=== PATIENT | female | born 1995 | race Caucasian/White ===

== ENCOUNTER 2016-11-24 21:31 | Inpatient (IN) | payer OTHER ==
[~2016-11-24] VITALS: Ht 152.4 cm; Wt 57.2 kg
[~2016-11-24 21:31] MED LIST: FERR27TA PO; NO MEDS; PREN1TAB49 PO
[2016-11-24 22:06] VITALS: Ht 152.4 cm; Wt 57.2 kg
[2016-11-24 22:07] VITALS: BP 108/56; PULSE 74; RESP 18
[2016-11-24 22:08] VITALS: BP 108/56
[2016-11-24] MEDS ORDERED: LACTATED RINGER'S 1,000 ML IV SCH (22:47)
[2016-11-24] MEDS ORDERED: METHYLERGONOVINE 0.2 MG INJ IM PRN (23:00)
[2016-11-24] MEDS ORDERED: OXYTOCIN 30 UNITS/LR 500 ML IV SCH ×2 (23:00)
[2016-11-24] MEDS ORDERED: LACTATED RINGER'S 1,000 ML IV PRN (23:00)
[2016-11-24] MEDS ORDERED: LIDOCAINE 1% (MPF) 30 ML INJ INJ PRN (23:00)
[2016-11-24] MEDS ORDERED: MISOPROSTOL 200 MCG TAB PR PRN (23:00)
[2016-11-24] MEDS ORDERED: BUTORPHANOL 2 MG INJ IV PRN (23:00)
[2016-11-24] MEDS ORDERED: AMPICILLIN 2 GM/NS (PMX) 100 ML IV ONE (23:00)
[2016-11-24] MEDS ORDERED: OXYTOCIN 30 UNITS/LR 500 ML IV PRN (23:00)
[2016-11-24] MEDS ORDERED: CARBOPROST 250 MCG INJ IM PRN (23:00)
--- NOTE | 2016-11-24 23:11 | HP ---
Date/Time of Note Date/Time of Note DATE: 11/24/16 TIME: 23:07 OB - History Hx of Present Free Text/Dictation 21-year-old with IUP at 38 weeks and 1 day with care at [facility] was sent from the clinic due to concern for possible cholestasis of . Patient reports itching of the pounds and soles for the last 1 and half weeks. Past OB history significant for history of cholecysto prior . She denies any leaking of fluid vaginal bleeding or contractions or decreased movement. Past medical history also significant for history of severe anemia. Hemoglobin was 8.3. She also had a history of chronic UTI currently on medication. Exam shows favorable cervix. NST category 1 Estimated Due Date: Dec 05, 2016 : 3 Para: 1 Therapeutic : 1 Care: Good Care Obstetrical Complications: Other (Severe anemia) Medical Complications: None Other Concerns: itching of the palms and soles History of cholestasis of at prior Past Family/Social History * Past Medical, Surgical, Family and Obstetric Histories reviewed from chart. Blood Type: B+ Rubella: immune RPR/VDRL: Negative GBS Status: Unknown HBsAG: Negative OB Admission Exam Vital Signs Vital Signs Vital Signs Date Time Temp Pulse Resp B/P Pulse Ox O2 Delivery O2 Flow Rate FiO2 11/24/16 22:08 98.0 74 18 108/56 100 Room Air Physical Exam HEENT: WNL Heart: Rhythm Normal Lungs: Clear Abdomen: WNL Extremities: Normal Reflexes: Normal Cervical Dilatation: 1cm Effacement: 75% Station: -2 Membranes: Intact Heart Rate: 130's Accelerations: Accelerations Present Decelerations: No Decelerations Varibility: Moderate Contractions on Admission: None Intensity: Mild OB Assessment/Plan Other Assessment: IUP at 38 weeks and 1 days Favorable cervix History of cholestasis and prior Itching of soles and palms, cannot rule out cholecystitis and current as well History of severe anemia. Asymptomatic and hemodynamically stable likely iron deficiency anemia. Other plan: Admit to labor and delivery Induction discussed with the patient and due to concern for possibility of cholestasis and term . Risk and benefits discussed. Consider starting induction with Cytotec GBS prophylaxis. GBS culture was done no results available. Anticipate ALMA GOMEZ MD Nov 24, 2016 23:11
--- NOTE | 2016-11-24 23:46 | TRIAGE ---
OB Triage Datetime Report Generated by CPN: 11/24/2016 23:45 Datetime: 11/24/2016 23:17 Assessment Type: Admission Assessment Maternal Assessment Level of Consciousness: Fully Conscious DTR's/Clonus: DTRs 2+; No Clonus Headache: Denies Blurred Vision: No Respiratory Effort: Unlabored Breath Sounds, Right: Clear and Equal Nausea/Vomiting: Denies RUQ Epigastric Pain: Denies Lower Extremities Edema: None Degree: None Upper Extremities Edema: None Degree: None Facial Edema: None Fall Risk Assessment History of Falling: (0) No Secondary Diagnosis: (0) No Ambulatory Aid: (0) Bedrest/Nurse Assist IV Therapy: (0) No Gait: (0) Normal/Bedrest/Immobile Mental Status: (0) Oriented to Own Ability Fall Score: 0 Fall Risk Score Definition: No Risk: No action required Pain Assessment Pain Scale: 0 Pain Presence: None/Denies Pain Type: N/A Pain Goal: 0 Membrane Status: Intact Datetime: 11/24/2016 22:27 Vaginal Exam Dilatation (cms): 1.0 Effacement (%): 70 Station: -2 Exam By: DR GOMEZ Vaginal Bleeding: None Cervix, Consistency: Moderate Cervix, Position: Anterior Presentation 'A': Cephalic Datetime: 11/24/2016 22:24 Maternal Assessment Level of Consciousness: Fully Conscious DTR's/Clonus: DTRs 2+; No Clonus Headache: Denies Blurred Vision: No Breath Sounds, Left: Clear and Equal Breath Sounds, Right: Clear and Equal Nausea/Vomiting: Denies RUQ Epigastric Pain: Denies Facial Edema: None Labor Evaluation Frequency: 0 Monitor Mode: External Duration (sec)2399: 0 Resting Tone [place]: Relaxed Pain Assessment Pain Scale: 0 Pain Presence: None/Denies Pain Type: N/A Pain Goal: 0 Membrane Status: Intact Datetime: 11/24/2016 22:04 Time of Arrival: 11/24/2016 21:28 EGA: 38.1 Arrived By: Ambulatory Arrived From: Office Chief Complaint: r/o cholestatis Movement: Present Contractions: Denies/Absent Rupture of Membranes: Denies Vaginal Bleeding: None Vaginal Discharge: Denies Recent Sexual Intercouse: Denies Abdominal Trauma: Not Applicable Patient Complaints: None Time Provider Notified: 11/24/2016 21:45 Provider Notified: JASON
[2016-11-25] MEDS: MISOPROSTOL 25 MCG CAPSULE PO SCH ×6 (00:17→21:00)
[2016-11-25 00:20] LABS: BASOPHILS % 0.5 % (0.0-2.0); EOSINOPHILS % 0.2 % (0.0-7.0); HEMATOCRIT 26.9 % (37.0-47.0); HEMOGLOBIN 8.6 g/dl (12.0-16.0); LYMPHOCYTES # 1.7 10^3/ul (0.8-2.9); LYMPHOCYTES % 27.9 % (15.0-51.0); MEAN CORPUSCULAR HEMOGLOBIN 25.2 pg (29.0-33.0); MEAN CORPUSCULAR HGB CONC 32.1 g/dl (32.0-37.0); MEAN CORPUSCULAR VOLUME 78.7 fl (82.0-101.0); MEAN PLATELET VOLUME 8.3 fl (7.4-10.4); MONOCYTE # 0.2 10^3/ul (0.3-0.9); MONOCYTES % 3.3 % (0.0-11.0); NEUTROPHIL # 4.1 10^3/ul (1.6-7.5); NEUTROPHILS % 68.1 % (39.0-77.0); PLATELET COUNT 277 10^3/UL (140-440); RED BLOOD COUNT 3.42 10^6/ul (4.20-5.40); RED CELL DISTRIBUTION WIDTH 15.4 % (11.5-14.5)
[2016-11-25 00:24] LABS: CONDITION 1; LH ANALYZER COMMENTS 1
[2016-11-25 00:52] LABS: INR 0.85; PARTIAL THROMBOPLASTIN TIME 26.7 Sec (25.0-35.0); PROTIME 11.6 Sec (12.2-14.2); PT RATIO 0.9
[2016-11-25] MEDS ORDERED: DIPHENHYDRAMINE 50 MG INJ IM ONE (02:00)
[2016-11-25] MEDS ORDERED: AMPICILLIN 1 GM/NS (PMX) 50 ML IV SCH (03:00)
[2016-11-25] MEDS ORDERED: FENTAnyl 2MCG/ML-ROPIV 0.2% 100 ML ONE (07:45)
--- NOTE | 2016-11-25 09:27 | LDN ---
Date/Time of Note Date/Time of Note DATE: 11/25/16 TIME: 09:21 Delivery Summary Normal spontaneous vaginal delivery of a baby boy from HERBERT position shoulders delivered with no difficulty followed with the delivery of the rest of the baby, s body cord clamp after stopped pulsation cord blood obtained placenta spontaneous expulsion inspected complete no perineal laceration estimated blood loss 200 cc. Placenta Delivered: Spontaneously Meconium: none Perineum intact?: Yes Anesthesia type: Epidural Sponge & Needle done & correct: Yes All needle counts correct: Yes Any foreign bodies felt in the: No Problems: Infant Delivery Information Sex Sex: male Apgars 1 Minute: 9 5 Minute: 9 Suctioning Nose & mouth suctioned at edward: Yes Delee suction performed: No Umbilical Cord Umbilical cord with: 3 Vessels Cord presentations: no nuchal cord Cord Blood was obtained: Yes RACHEL ALCAZAR MD Nov 25, 2016 09:27
[2016-11-25 11:26] VITALS: BP 122/73; PULSE 78; RESP 20
[2016-11-25] MEDS ORDERED: ACETAMINOPHEN 325 MG TAB PO PRN (11:30)
[2016-11-25] MEDS ORDERED: DIBUCAINE 1% 30 GM OINT PR PRN (11:30)
[2016-11-25] MEDS ORDERED: WITCH HAZEL/GLYCERIN PAD PR PRN (11:30)
[2016-11-25] MEDS ORDERED: OXYCODONE/ASPIRIN (4.88/325) TAB PO PRN ×2 (11:30)
[2016-11-25] MEDS ORDERED: ACETAMINOPHEN/CODEINE #3 TAB PO PRN (11:30)
[2016-11-25] MEDS ORDERED: LANOLIN 7 GM TUBE TOP PRN (11:30)
[2016-11-25] MEDS ORDERED: ONDANSETRON 4 MG INJ IV PRN (11:30)
[2016-11-25] MEDS ORDERED: BENZOCAINE 20% 56 ML SPRAY TOP PRN (11:30)
[2016-11-25] MEDS: IBUPROFEN 600 MG TAB PO SCH ×3 (11:50→23:39)
[2016-11-25] MEDS: OXYTOCIN 30 UNITS/LR 500 ML IV SCH ×2 (11:52→15:13)
[2016-11-25 15:35] VITALS: BP 106/66; PULSE 80; RESP 19
[2016-11-25 19:45] VITALS: BP 102/63; PULSE 66; RESP 18
[2016-11-25] MEDS: ACETAMINOPHEN/CODEINE #3 TAB PO PRN (20:02)
[2016-11-25] MEDS: SENNA/DOCUSATE NA (8.6MG/50MG) TAB PO SCH (21:24)
[2016-11-25 23:53] VITALS: BP 104/55; PULSE 69; RESP 18
[2016-11-26] MEDS ORDERED: LACTATED RINGER'S 1,000 ML IV ONE (02:00)
[2016-11-26 03:41] VITALS: BP 99/49; PULSE 63; RESP 18
[2016-11-26] MEDS: ACETAMINOPHEN/CODEINE #3 TAB PO PRN ×3 (04:52→21:07)
[2016-11-26] MEDS: IBUPROFEN 600 MG TAB PO SCH ×4 (05:39→23:35)
[2016-11-26 07:53] LABS: BASOPHILS % 0.5 % (0.0-2.0); EOSINOPHILS % 0.3 % (0.0-7.0); HEMATOCRIT 24.1 % (37.0-47.0); HEMOGLOBIN 7.9 g/dl (12.0-16.0); LYMPHOCYTES # 1.6 10^3/ul (0.8-2.9); LYMPHOCYTES % 18.5 % (15.0-51.0); MEAN CORPUSCULAR HEMOGLOBIN 25.7 pg (29.0-33.0); MEAN CORPUSCULAR HGB CONC 32.9 g/dl (32.0-37.0); MEAN CORPUSCULAR VOLUME 78.1 fl (82.0-101.0); MEAN PLATELET VOLUME 8.3 fl (7.4-10.4); MONOCYTE # 0.5 10^3/ul (0.3-0.9); MONOCYTES % 5.3 % (0.0-11.0); NEUTROPHIL # 6.4 10^3/ul (1.6-7.5); NEUTROPHILS % 75.4 % (39.0-77.0); PLATELET COUNT 259 10^3/UL (140-440); RED BLOOD COUNT 3.09 10^6/ul (4.20-5.40); RED CELL DISTRIBUTION WIDTH 15.4 % (11.5-14.5); UNCORRECTED WBC 8.5 10^3/ul (4.8-10.8); WHITE BLOOD COUNT 8.5 10^3/ul (4.8-10.8)
[2016-11-26 08:00] VITALS: BP 101/50; PULSE 67; RESP 18
[2016-11-26 08:31] LABS: CONDITION 1; LH ANALYZER COMMENTS 1
[2016-11-26] MEDS: SENNA/DOCUSATE NA (8.6MG/50MG) TAB PO SCH ×2 (09:09→21:00)
[2016-11-26 16:18] VITALS: BP 124/78; PULSE 65; RESP 18
--- NOTE | 2016-11-26 18:05 | PN ---
Date/Time of Note Date/Time of Note DATE: 11/26/16 TIME: 18:05 OB Subjective Subjective Subjective day 1 Afebrile abdomen soft uterus firm lochia normal extremity normal Laboratory Tests Test 11/26/16 07:32 Basophils # 0.010^3/ul Basophils % 0.5% Blood Morphology Comment Eosinophils # 0.010^3/ul Eosinophils % 0.3% Hematocrit 24.1% Hemoglobin 7.9g/dl Lymphocytes # 1.610^3/ul Lymphocytes % 18.5% Mean Corpuscular Hemoglobin 25.7pg Mean Corpuscular Hemoglobin Concent 32.9g/dl Mean Corpuscular Volume 78.1fl Mean Platelet Volume 8.3fl Monocytes # 0.510^3/ul Monocytes % 5.3% Neutrophils # 6.410^3/ul Neutrophils % 75.4% Nucleated Red Blood Cells # 0.010^3/ul Nucleated Red Blood Cells % 0.0/100WBC Platelet Count 76887^3/UL Red Blood Count 3.0910^6/ul Red Cell Distribution Width 15.4% White Blood Count 8.510^3/ul Current Medications Medications (Trade) Dose Ordered Sig/[place] Route PRN Reason Start Time Stop Time Status Last Admin Dose Admin Lactated Ringer's 1,000 ml @ 125 mls/hr Q8H IV 11/24/16 22:47 11/25/16 11:15 DC 11/24/16 23:49 Ampicillin 100 ml @ 100 mls/hr ONCE ONCE IV 11/24/16 23:00 11/24/16 23:59 DC 11/24/16 23:49 Ampicillin (Ampicillin 1 Gm/ NS (Pmx)) 50 ml @ 100 mls/hr Q4H IV 11/25/16 03:00 11/25/16 11:15 DC 11/25/16 04:05 Misoprostol (Cytotec 25 Mcg Capsule) 50 mcg Q4 PO 11/25/16 01:00 11/25/16 17:00 Butorphanol Tartrate (Stadol) 2 mg Q2H PRN IV PAIN 11/24/16 23:00 11/25/16 11:15 DC 11/25/16 04:05 Lidocaine 30 ml 30 ml ONCE PRN INJ EPISIOTOMY/TEARING 11/24/16 23:00 11/25/16 11:15 DC Oxytocin/Lactated Ringer's 500 ml @ 125 mls/hr ONCE -MAY REPEAT X1 IV 11/24/16 23:00 11/25/16 11:16 DC 11/25/16 08:31 Oxytocin/Lactated Ringer's 500 ml @ 125 mls/hr ONCE IV 11/24/16 23:00 11/25/16 11:16 DC Lactated Ringer's 1,000 ml @ 2,000 mls/hr Q30M PRN IV PRE-EPIDURAL BOLUS 11/24/16 23:00 11/26/16 10:56 DC 11/25/16 07:05 Oxytocin/Lactated Ringer's 500 ml @ 0 mls/hr ONCE PRN IV For Hemorrhage Management 11/24/16 23:00 11/26/16 10:56 DC 11/25/16 08:30 Methylergonovine Maleate (Methergine) 0.2 mg ONCE PRN IM VAGINAL BLEEDING 11/24/16 23:00 Carboprost Tromethamine (Hemabate) 250 mcg ONCE PRN IM VAGINAL BLEEDING 11/24/16 23:00 Misoprostol (Cytotec) 1,000 mcg ONCE PRN SD VAGINAL BLEEDING 11/24/16 23:00 Diphenhydramine HCl 25 mg 25 mg ONCE ONCE IM 11/25/16 02:00 11/25/16 02:01 DC 11/25/16 02:07 Fentanyl/ Ropivacaine 100 ml @ ud STK-MED ONCE .ROUTE 11/25/16 07:45 11/25/16 07:46 DC Oxytocin/Lactated Ringer's 500 ml @ 125 mls/hr Q4H IV 11/25/16 11:13 11/25/16 19:12 DC 11/25/16 11:52 Ibuprofen (Motrin) 600 mg Q6 PO 11/25/16 12:00 11/26/16 18:02 Acetaminophen (Tylenol Tab) 650 mg Q4H PRN PO PAIN LEVEL 1-5 11/25/16 11:30 11/25/16 15:31 Acetaminophen/ Codeine Phosphate (Tylenol No.3) 1 tab Q4H PRN PO PAIN LEVEL 1-5 11/25/16 11:30 11/26/16 10:38 Acetaminophen/ Codeine Phosphate (Tylenol No.3) 2 tab Q4H PRN PO PAIN LEVEL 6-10 11/25/16 11:30 Oxycodone/Aspirin (Percodan) 1 tab Q3H PRN PO PAIN LEVEL 1-5 11/25/16 11:30 Oxycodone/Aspirin (Percodan) 2 tab Q3H PRN PO PAIN LEVEL 6-10 11/25/16 11:30 Ondansetron HCl (Zofran Inj) 4 mg Q6H PRN IV NAUSEA AND/OR VOMITING 11/25/16 11:30 Senna/Docusate Sodium (Senokot-S) 1 tab BID PO 11/25/16 21:00 11/26/16 09:09 Witch Rin/ Glycerin (Tucks Pads) 1 pad BEDSIDE MEDICATION PRN SD HEMORRHOID/EPISIOTMY PAIN 11/25/16 11:30 Benzocaine (Dermoplast [place]) 1 spray BEDSIDE MEDICATION PRN TOP HEMORRHOID/EPISIOTMY PAIN 11/25/16 11:30 11/25/16 11:50 Dibucaine (Nupercainal) 1 applic BEDSIDE MEDICATION PRN SD HEMORRHOID/EPISIOTMY PAIN 11/25/16 11:30 Lanolin (Rxj-[id number]) 1 applic BEDSIDE MEDICATION PRN TOP BEDSIDE FOR JOSE TO NIPPLES 11/25/16 11:30 11/25/16 11:50 Measles/Mumps/ Rubella Vaccine Live 0.5 ml 0.5 ml ONCE ONCE SC* 11/27/16 09:00 11/27/16 09:01 Lactated Ringer's (Lr) 1,000 ml @ 333 mls/hr Q3H1M ONCE IV 11/26/16 02:00 11/26/16 10:56 DC 11/26/16 02:02 RACHEL ALCAZAR MD Nov 26, 2016 18:05
[2016-11-26 19:50] VITALS: BP 112/75; PULSE 74; RESP 18
[2016-11-27 03:55] VITALS: BP 104/52; PULSE 57; RESP 18
[2016-11-27] MEDS: ACETAMINOPHEN/CODEINE #3 TAB PO PRN (04:35)
[2016-11-27] MEDS: IBUPROFEN 600 MG TAB PO SCH ×2 (05:44→12:32)
[2016-11-27 08:20] VITALS: BP 99/63; PULSE 63; RESP 17
[2016-11-27] MEDS: SENNA/DOCUSATE NA (8.6MG/50MG) TAB PO SCH (08:38)
[2016-11-27] MEDS ORDERED: MEASLES,MUMPS,RUBELLA VACCINE INJ SC* ONE (09:00)
--- NOTE | 2016-11-27 10:39 | PD.PPDC ---
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
--- NOTE | 2016-11-27 10:41 | DS ---
Date/Time of Note Date/Time of Note DATE: 11/27/16 TIME: 10:39 Obstetrical Discharge Record Final Diagnosis Final Diagnosis: Term delivered Vaginal Delivery Obstetrical Delivery: Spontaneous Condition on Discharge Physical Assessment Last Vitals: Vital sign is stable Abdomen soft uterus firm lochia normal extremity normal patient discharged home to follow-up instruction recommended to make an appointment to be seen in the clinic 2 weeks Voiding: Yes Bowel Movement: Yes Breast: Soft, non-tender, Filling Fundus: Firm Calf Tenderness: No Patient Condition: Good RACHEL ALCAZAR MD Nov 27, 2016 10:41
== END 2016-11-27 16:42 | disposition home or self-care (01) | DRG 775 ==
LOC: OBT 21:31 → L-D 21:32 → OBT 23:00 → L-D 23:00 → PP1 11-25 10:54
PROVIDERS: ADMIT Obstetrics & Gynecology; ATTEND Obstetrics & Gynecology
PROC: 10E0XZZ Delivery of Products of Conception, External Approach (ICD-10-PCS; principal; 2016-11-25)
DX: O99.02 Anemia complicating childbirth (principal); Z37.0 Single live birth; Z3A.38 38 weeks gestation of pregnancy
CPT/HCPCS: 62319; 85025; 85610; 85730; 86592; 86900; 86901; 87340; G0463; J0290; J1200; J2590; J3010; J7120

== ENCOUNTER 2016-12-18 14:40 | Emergency (ER) | payer OTHER ==
[~2016-12-18] VITALS: Ht 152.4 cm; Wt 49.5 kg
[2016-12-18 14:48] VITALS: Ht 152.4 cm; Wt 49.5 kg
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
[2016-12-18] MEDS ORDERED: NAPR-260 PO (18:07)
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
[2016-12-18] MEDS ORDERED: ACET500C5 PO (18:08)
[2016-12-18 18:17] VITALS: BP 122/68; PULSE 77; RESP 18
== END 2016-12-18 18:19 | disposition home or self-care (01) ==
LOC: FTE 14:40
DX: S09.92XA Unspecified injury of nose, initial encounter (principal); S39.92XA Unspecified injury of lower back, initial encounter; S09.90XA Unspecified injury of head, initial encounter; V49.50XA Passenger injured in collision with unspecified motor vehicles in traffic accident, initial encounter
CPT/HCPCS: 70160; 72072; 72100; Z7502

== ENCOUNTER 2018-05-03 07:52 | Emergency (ER) | END 2018-05-03 10:30 | disposition home or self-care (01) ==